=== PATIENT | female | born 1980 | race Caucasian/White ===

== ENCOUNTER 2021-08-03 00:29 | Emergency (ER) | payer OTHER, SELFPAY ==
[2021-08-03 00:31] VITALS: BP 133/90; PULSE 89; RESP 17; TEMP 36.9; O2SAT 98; BMI 33.3
--- NOTE | 2021-08-03 01:09 | EKG12_ITS ---
Test Reason : CP Blood Pressure : / mmHG Vent. Rate : 093 BPM Atrial Rate : 093 BPM P-R Int : 148 ms QRS Dur : 094 ms QT Int : 356 ms P-R-T Axes : 056 060 049 degrees QTc Int : 442 ms Normal sinus rhythm Nonspecific ST abnormality Abnormal ECG Confirmed by SHERICE PRATT, NEW ([id number]), society editor PAWAN HUI ([id number]) on 08/03/2021 9:05:54 AM Referred By: LEDY Confirmed By:NEW SMILEY MD
[2021-08-03 01:20] LABS: Absolute Lymphocyte Count 1.79 X10^3/uL (0.83-4.51); Absolute Neutrophil Count 6.2 X10^3/uL (2.0-7.7); Basophil# 0.04 X10^3/uL; Basophil% 0.4 % (0-1); Eosinophil# 0.13 X10^3/uL; Eosinophils% 1.4 % (0-5); Hemoglobin 13.2 g/dL (12.0-15.0); Lymphocyte # 1.79 X10^3/ul (0.83-4.51); Lymphocyte % 19.8 % (19-41); Mean Corp Hgb Conc 33.8 g/dL (32-36); Mean Corpuscular Hgb 33.2 pg (27.0-32.0); Mean Corpuscular Volume 98.2 fL (81-99); NRBC Flagged by Analyzer 0 % (0-5); Neutrophil # 6.15 X10^3/uL (2.7-7.7); Neutrophil % 68.2 % (47-70); Platelet Count 310 K/mm3 (150-450); RBC Distribution Width CV 12.3 % (11.6-14.6); RBC Distribution Width SD 44.8 fl (35.1-43.9); Red Blood Count 3.97 M/mm3 (4.2-5.4)
--- NOTE | 2021-08-03 01:22 | EX.ED.DYSGE1 ---
HPI History of Present Illness Chief Complaint: Palpitations Narrative Narrative: Patient is a 40-year-old female who states that she was sleeping when she awoke feel like her heart was racing/skipping beats. She states she is not have a history of cardiac dysrhythmia nor is her family history. She states that this is happened in the past but it seemed to resolve quickly. She states this evening it was lasting longer than previous and therefore she presents for evaluation. Upon arrival the patient does report that her symptoms have resolved. She denies any excessive stimulant use or illicit drug use. She also denies any recent travel surgery or history of DVT/PE. [facility]SH [facility] Home Medications NK 08/03/21 [History Last Taken Unknown] Allergy/AdvReac Type Severity Reaction Status Date / Time No Known Allergies Allergy Verified 08/03/21 00:37 Social History Smoking Status: Never smoker ROS ROS ED Constitutional Constitutional ED: Denies chills or fever(s) ENT ENT ED: Denies sore throat Cardiovascular Cardiovascular: Reports palpitations and racing heartbeat; Denies chest pain Respiratory/Chest Respiratory/Chest: Denies cough or dyspnea Gastrointestinal Gastrointestinal: Denies abdominal pain, diarrhea, nausea or vomiting Genitourinary Genitourinary ED: Denies dysuria Musculoskeletal Musculoskeletal: Denies myalgias Integumentary Denies rash Neurologic Neurologic: Denies headache(s) Hematologic/Lymphatic Hematologic/Lymphatic: Denies easy bleeding or easy bruising EXAM Physical Exam Const Vital Signs: 08/03/21 00:31 08/03/21 00:38 08/03/21 01:42 Temperature 98.5 F Temperature Source Temporal Pulse Rate 89 73 Respiratory Rate 17 23 H Respiratory Effort Short of Breath Respiratory Pattern Normal Blood Pressure 133/90 H 128/82 H Blood Pressure Mean 104 97 Pulse Ox 98 97 Oxygen Delivery Method Room Air Room Air 08/03/21 03:00 Temperature Temperature Source Pulse Rate 63 Respiratory Rate 11 L Respiratory Effort Respiratory Pattern Blood Pressure 106/54 L Blood Pressure Mean 71 Pulse Ox 96 Oxygen Delivery Method Positive well nourished and well developed General Appearance ED: well developed HEENT Reports moist mucous membranes Eyes PERRL and EOMs intact bilaterally Neck supple and no JVD Neck Narrative: Thyroid is without nodule or goiter Chest Wall palpation of chest normal Resp normal respiratory effort and clear to auscultation bilaterally Cardio regular rate and regular rhythm Rate: other Other Details: Radial pulses are plus 2 out of 4 bilaterally are equal and symmetric GI normal to inspection, nondistended, normoactive bowel sounds, non-tender, non-distended and no masses GI Narrative: No pulsatile mass Auscultation: normoactive bowel sounds Palpation: soft Extremity normal to inspection Extremity Narrative: There is slight asymmetric edema of the left leg compared to right with mild calf tenderness Neuro oriented x3 and CN's II-XII intact bilaterally Sensorium / Orientation: alert Motor Exam: strength 5/5 throughout Psych Psych Narrative: Patient has a nervous/anxious affect Mood & Affect: anxious Skin no rashes or lesions noted MDM MDM MDM Narrative Medical decision making narrative: Patient presented to the ER and no acute distress with stable vitals. She reported spontaneous improvement of her symptoms as well. She is low risk for CAD and has no family history of cardiac dysrhythmia. Still based on her complaint of palpitations a basic work-up was obtained. Labs showed slight hypokalemia 3.3 and a slightly elevated D-dimer at 5.57 but otherwise no clinically significant finding. As the patient did report feeling her heart race and did have slight asymmetric leg edema I did elect to perform a CTA. CTA revealed no acute findings. Patient was kept on a environmental monitoring technician for her entire ER stay and she had no dysrhythmia noted. Moreover her symptoms remained resolved for her entire ER stay. Therefore with work-up revealing no cardiac dysrhythmia CTA revealing no acute chest pathology and her initial and delta troponin showing no variations and the fact patient's had spontaneous resolution of symptoms I feel she is safe for discharge and can follow-up on an outpatient basis. Lab Data Attestation: I reviewed the patient's lab results. Labs: Laboratory Results - last 24 hr 08/03/21 08/03/21 08/03/21 01:10 01:10 01:10 WBC 9.0 RBC 3.97 L Hgb 13.2 Hct 39.0 MCV 98.2 MCH 33.2 H MCHC 33.8 RDW Std Deviation 44.8 H RDW Coeff of Cindy 12.3 Plt Count 310 MPV 9.0 Immature Gran % (Auto) 0.200 Neut % (Auto) 68.2 Lymph % (Auto) 19.8 Zavala % (Auto) 10.0 Eos % (Auto) 1.4 Baso % (Auto) 0.4 Absolute Neuts (auto) 6.2 Absolute Lymphs (auto) 1.79 Nucleated RBC % 0 PT INR APTT D-Dimer Quant (PE/DVT) 0.57 H* Sodium 136 Potassium 3.3 L Chloride 103 Carbon Dioxide 27.0 Anion Gap 6 BUN 7 Creatinine 0.56 Estim Creat Clear Calc 113.01 Est GFR (MDRD) Af Amer 151 Est GFR (MDRD) Non-Af 125 BUN/Creatinine Ratio 12.4 Glucose 108 H Calcium 8.6 Magnesium 1.8 Troponin I High Sens 5 TSH 3.74 Urine Test 08/03/21 08/03/21 08/03/21 01:10 01:15 03:25 WBC RBC Hgb Hct MCV MCH MCHC RDW Std Deviation RDW Coeff of Cindy Plt Count MPV Immature Gran % (Auto) Neut % (Auto) Lymph % (Auto) Zavala % (Auto) Eos % (Auto) Baso % (Auto) Absolute Neuts (auto) Absolute Lymphs (auto) Nucleated RBC % PT 12.6 INR 1.0 APTT 26.1 D-Dimer Quant (PE/DVT) Sodium Potassium Chloride Carbon Dioxide Anion Gap BUN Creatinine Estim Creat Clear Calc Est GFR (MDRD) Af Amer Est GFR (MDRD) Non-Af BUN/Creatinine Ratio Glucose Calcium Magnesium Troponin I High Sens 5 TSH Urine Test Negative Radiography Diagnostic Testing: Clinical Impression(s) from Imaging Studies Chest CTA 08/03/21 01:36 IMPRESSION: No acute cardiopulmonary disease Electronically Signed: Jhon Parra MD at 3:27 EDT , Discharge Plan Triage Chief Complaint: Palpitations ED Provider: Phil Delatorre Dx/Rx/DC Orders Clinical Impression: Heart palpitations, Hypokalemia Instructions: ED Hypokalemia, ED Palpitations Prescriptions: No Action NK RF: 0 Primary Care Provider: Care Physician,No Primary Referrals: Fast,Sana, DO [NON-STAFF] - 5-7 Days Care Physician,No Primary [Primary Care Provider] - Activity Restrictions/Additional Instructions: Please follow-up with your family doctor to discuss need for possible Holter monitor if symptoms persist. Otherwise return to the ER should you have any further concerns. Disposition Disposition: Home, Self Care
[2021-08-03 01:28] LABS: Internal QC Validated? YES +Cl - CLEAR BKGD; Pregnancy, Urine Negative Negative
--- NOTE | 2021-08-03 01:36 | CT_ITS ---
STUDY: CTA CHEST REASON FOR EXAM: Female, 40 years old. Elevated d-dimer RADIATION DOSAGE (If Supplied By Facility): CTDIvol = ( 11.65 ) mGy, DLP = ( 432.32 ) mGycm TECHNIQUE: The examination was performed with the intravenous administration of IV 100mL Isovue-370. Post-processing of the angiographic images was performed, with multiplanar reformation and 3D reconstruction. Individualized dose optimization techniques were used for this CT. COMPARISON: None. FINDINGS: Normal enhancement of the main pulmonary artery and right and left pulmonary arteries. Normal enhancement of the bilateral peripheral pulmonary arteries. There is no demonstrated pulmonary embolism. Normal thoracic aorta and visualized great vessels. There is no demonstrated aortic dissection. Normal heart and pericardium. Shotty mediastinal and hilar lymph nodes No confluent pulmonary infiltrate. Mild dependent atelectasis versus scar formation throughout both lungs. No concerning pulmonary nodule. No pleural effusion or pneumothorax. Normal osseous structures. Normal visualized upper abdomen. CT/CTA Chest W/WO Contrast IMPRESSION: No acute cardiopulmonary disease Electronically Signed: Jhon Parra MD at 3:27 EDT ,
[2021-08-03 01:37] LABS: D-Dimer Quantitative (DVT/PE) 0.57 FEU/ug/m (0.27-0.49)
[2021-08-03] MEDS: 0.9% Normal Saline 1,000 ML 999 ML IV (01:41)
[2021-08-03 01:42] VITALS: BP 128/82; PULSE 73; RESP 23; O2SAT 97
[2021-08-03 01:48] LABS: Prothrombin Time (Protime)PT. 12.6 SECONDS (11.7-14.9)
[2021-08-03 01:49] LABS: Anion Gap 6 (5-15); BUN 7 mg/dL (7-18); BUN/Creat Ratio 12.4 RATIO (10-20); Calcium,Total 8.6 mg/dL (8.5-10.1); Chloride 103 mmol/L (98-107); Creatinine, Serum 0.56 mg/dL (0.55-1.02); EST Glomerular Filtration Rate 125 mL/min (>60); Est Glom Filt Rate - Afr Amer 151 mL/min (>60); Estimated Creatinine Clearance 113.01 ml/min; Glucose 108 mg/dL (74-106); Magnesium 1.8 mg/dL (1.6-2.6); Partial Thromboplast Time 26.1 Seconds (24.1-36.2); Potassium 3.3 mmol/L (3.5-5.1); Sodium Level 136 mmol/L (136-145); Thyroid Stim Hormone (TSH) 3.74 uIU/mL (0.358-3.74); Troponin-I HS 5 pg/mL (3.0-54.0)
[2021-08-03 03:00] VITALS: BP 106/54; PULSE 63; RESP 11; O2SAT 96
[2021-08-03 03:53] LABS: Troponin-I HS 5 pg/mL (3.0-54.0)
[2021-08-03 04:01] VITALS: BP 98/63; PULSE 67; RESP 20; O2SAT 98
== END 2021-08-03 04:10 | disposition home or self-care (01) ==
PROVIDERS: Emergency Provider Emergency Medicine; Visit Provider Emergency Medicine
DX: R00.2 Palpitations (principal); E87.6 Hypokalemia; R60.1 Generalized edema
CPT/HCPCS: 71275; 80048; 81025; 83735; 84443; 84484; 85025; 85379; 85610; 85730; 93005; 99283; J7030; Q9967; A4216